=== PATIENT | female | born 1960 | race Two or more races ===

== ENCOUNTER 2023-01-16 06:29 | Emergency (ER) | payer OTHER ==
[~2023-01-16] VITALS: Ht 162.6 cm; Wt 60.8 kg
--- NOTE | 2023-01-16 06:55 | NUR ---
NIKI C.O. R WRIST PAIN S/P FELL IN SHOWER. PLACED IN BED 9. AWAITING MD FOR EVAL AND FURTHER ORDERS.
[2023-01-16] MEDS ORDERED: IBUP-1955 PO (07:36)
--- NOTE | 2023-01-16 07:42 | NUR ---
Patient discharged to home in stable condition. Written and verbal after care instructions given. Patient verbalizes understanding of instruction.
[2023-01-16 07:44] VITALS: BP 128/69
== END 2023-01-16 07:45 | disposition home or self-care (01) ==
LOC: ER 06:31
DX: S52.511A Displaced fracture of right radial styloid process, initial encounter for closed fracture (principal); W01.0XXA Fall on same level from slipping, tripping and stumbling without subsequent striking against object, initial encounter; Y93.89 Activity, other specified; Y92.89 Other specified places as the place of occurrence of the external cause; Y99.8 Other external cause status
CPT/HCPCS: 73110